=== PATIENT | female | born 2000 | race Caucasian/White ===

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

== ENCOUNTER 2019-03-17 22:35 | Emergency (ER) | payer OTHER ==
[~2019-03-17] VITALS: Ht 157.5 cm; Wt 72.7 kg
[~2019-03-17 22:35] MED LIST: NEXPLANON68 MG ID; PHENERGAN 25 TA25 MG PO
[2019-03-17 22:36] VITALS: BP 132/99; TEMP 98.2
[2019-03-18] MEDS ORDERED: NORCO 325 MG-51 TAB PO (00:06)
[2019-03-18 02:49] VITALS: PULSE 98
== END 2019-03-18 02:43 | disposition short-term general hospital (02) ==
LOC: COL.ER 22:35
DX: S82.301A Unspecified fracture of lower end of right tibia, initial encounter for closed fracture (principal); S82.831A Other fracture of upper and lower end of right fibula, initial encounter for closed fracture; V89.2XXA Person injured in unspecified motor-vehicle accident, traffic, initial encounter
CPT/HCPCS: J3010; J7030; Q4041